=== PATIENT | female | born 1965 | race Caucasian/White ===

== ENCOUNTER 2018-05-08 19:31 | Emergency (ER) | payer SELFPAY ==
[2018-05-08 19:44] VITALS: BP 158/62; PULSE 96; RESP 20; TEMP 36.1; O2SAT 99; BMI 42.5
--- NOTE | 2018-05-08 19:45 | ED.DIZZY ---
HPI - Dizziness <FELECIA Pratt - Last Filed: 05/08/18 22:49> General Chief Complaint: Dizziness Stated Complaint: DIZZY, SWAETING Time Seen by Provider: 05/08/18 19:39 History of Present Illness HPI Narrative: 53-year-old female with history of a prior [place] and cardiac stents here for complaint of having dizziness episodes today started when she woke up this morning at 5 o'clock. She states when she stood up she felt dizziness and lasted for a short while. She did go to work today and states that she had a few episodes today where she moved her head quickly or sat up quickly and she has some dizziness. She reports she had dizziness when she was walking home this afternoon. She denies any chest pain. She did have some nausea. No shortness of breath. She did have some diaphoresis. She denies any head trauma. No fevers no chills positive p.o. intake. No other concerns or complaints. She denies dizziness as more lightheadedness not as much vertigo Related Data Previous Rx's Medication Instructions Recorded meclizine 25 mg PO DAILY PRN #10 tab 05/08/18 Allergies Allergy/AdvReac Type Severity Reaction Status Date / Time No Known Drug Allergies Allergy Verified 05/08/18 20:25 Review of Systems <FELECIA Pratt - Last Filed: 05/08/18 22:49> Constitutional Denies chills, Denies fever(s), Denies lethargy and Denies weakness Eyes Denies change in vision, Denies eye discharge, Denies irritation and Denies loss of vision ENT Ears, Nose, Mouth, and Throat: Reports dizziness Cardiovascular Denies chest pain, Denies irregular heart rhythm, Denies lightheadedness, Denies palpitations, Denies dyspnea, Denies dyspnea on exertion and Denies orthopnea Respiratory Denies cough, Denies dyspnea, Denies dyspnea on exertion and Denies wheezing Genitourinary Denies hematuria, Denies flank pain, Denies urinary incontinence and Denies urinary urgency Musculoskeletal Denies back pain, Denies muscle weakness, Denies numbness and Denies tingling Integumentary/Breasts Denies pruritus, Denies erythema, Denies rash and Denies wounds Neurologic Reports dizziness, Denies loss of vision, Denies numbness, Denies tingling and Denies weakness Endocrine Denies palpitations Allergic/Immunologic Denies wheezing Exam <FELECIA Pratt - Last Filed: 05/08/18 22:49> Initial Vital Signs Initial Vital Signs: Vital Signs Temperature 97 F L 05/08/18 19:44 Pulse Rate 96 H 05/08/18 19:44 Respiratory Rate 20 05/08/18 19:44 Blood Pressure 158/62 H 05/08/18 19:44 Pulse Oximetry 99 05/08/18 19:44 Const General: cooperative and well developed Nutritional Appearance: well nourished Orientation: alert, awake, oriented x3 and not confused HENTN Mouth: oral mucosae normal and moist mucous membranes Eyes Conjunctivae: conjunctivae normal Sclera: sclerae normal Pupils: PERRL EOM: EOM intact bilaterally and No nystagmus Resp Effort & Inspection: normal respiratory effort, able to speak in complete sentences, no respiratory distress and no use of accessory muscles Auscultation: clear to auscultation bilaterally, no rales, no rhonchi and no wheezes Cardio Rate: regular rate Rhythm: regular rhythm Heart Sounds: no click, no gallops, no murmurs and no rubs Pulses: normal peripheral pulses Skin General: no rashes or lesions noted, No jaundice and No petechiae Neuro General: alert, oriented x3, gait normal and no focal motor deficits Cranial Nerves: No nystagmus Speech: speech normal <Pierre Laurent DO - Last Filed: 05/09/18 03:10> Initial Vital Signs Initial Vital Signs: Vital Signs Temperature 97 F L 05/08/18 19:44 Pulse Rate 96 H 05/08/18 19:44 Respiratory Rate 20 05/08/18 19:44 Blood Pressure 158/62 H 05/08/18 19:44 Pulse Oximetry 99 05/08/18 19:44 Scores <FELECIA Pratt - Last Filed: 05/08/18 22:49> HEART Score Heart Score history: Moderately Suspicious Heart Score EKG: Non-Specific repolarization disturbance Heart Score Age: 45-64 years old Heart Score risk factors: 1-2 risk factors NIH Stroke Scale Level of Conciousness: Alert, keenly responsive Ask month/age: Answers both questions correctly. Open/close eyes, close hand: Performs both tasks correctly Best gaze horizontal: Normal Visual mendez: No visual loss Facial palsy: Normal symetrical movement Left arm drift: No drift for full 10 sec Right arm drift: No drift for full 10 sec Left leg drift: No drift for full 10 sec Right leg drift: No drift for full 10 sec Limb ataxia: Absent Sensory on face/arms/legs: Normal, no sensory loss Best language: No aphasia, normal Dysarthria: Normal Extinction or inattention: No abnormality Total NIH Stroke scale score: 0 Course <FELECIA Pratt - Last Filed: 05/08/18 22:49> Orders Ordered: ED Orders 05/08/18 19:50 B Type Natriuretic Peptide Stat Basic Metabolic Panel Stat Complete Blood Count AUTO DIFF Stat Prothrombin Time INR Stat Troponin & CK Cardiac Panel Stat Troponin I Stat 05/08/18 20:02 CT head/brain wo con Stat XR chest 1V Stat Discontinued Medications Aspirin (Aspirin Chew) 243 mg PO DAILY SAPPHIRE Aspirin (Aspirin Chew) 243 mg PO NOW ONE Stop: 05/08/18 20:44 Last Admin: 05/08/18 21:04 Dose: 243 mg Vital Signs - 8 hr 05/08/18 19:44 05/08/18 20:00 05/08/18 21:06 Temperature 97 F L Pulse Rate 96 H 80 76 Pulse Rate [Orthostatic Lying] Pulse Rate [Orthostatic Sitting] Pulse Rate [Orthostatic Standing] Respiratory Rate 20 17 19 Blood Pressure 158/62 H Blood Pressure [Orthostatic Lying] Blood Pressure [Orthostatic Sitting] Blood Pressure [Orthostatic Standing] Blood Pressure [Right Wrist] 136/71 H 118/65 Pulse Oximetry 99 97 97 05/08/18 21:56 05/08/18 22:36 05/08/18 23:30 Temperature Pulse Rate 75 68 Pulse Rate [Orthostatic Lying] 77 Pulse Rate [Orthostatic Sitting] 81 Pulse Rate [Orthostatic Standing] 89 Respiratory Rate 19 18 Blood Pressure 112/64 Blood Pressure [Orthostatic Lying] 112/62 Blood Pressure [Orthostatic Sitting] 124/84 H Blood Pressure [Orthostatic Standing] 139/85 H Blood Pressure [Right Wrist] 108/62 Pulse Oximetry 95 99 <Pierre Laurent DO - Last Filed: 05/09/18 03:10> Orders Ordered: ED Orders 05/08/18 19:50 B Type Natriuretic Peptide Stat Basic Metabolic Panel Stat Complete Blood Count AUTO DIFF Stat Prothrombin Time INR Stat Troponin & CK Cardiac Panel Stat Troponin I Stat 05/08/18 20:02 CT head/brain wo con Stat XR chest 1V Stat Discontinued Medications Aspirin (Aspirin Chew) 243 mg PO DAILY SAPPHIRE Aspirin (Aspirin Chew) 243 mg PO NOW ONE Stop: 05/08/18 20:44 Last Admin: 05/08/18 21:04 Dose: 243 mg Vital Signs - 8 hr 05/08/18 19:44 05/08/18 20:00 05/08/18 21:06 Temperature 97 F L Pulse Rate 96 H 80 76 Pulse Rate [Orthostatic Lying] Pulse Rate [Orthostatic Sitting] Pulse Rate [Orthostatic Standing] Respiratory Rate 20 17 19 Blood Pressure 158/62 H Blood Pressure [Orthostatic Lying] Blood Pressure [Orthostatic Sitting] Blood Pressure [Orthostatic Standing] Blood Pressure [Right Wrist] 136/71 H 118/65 Pulse Oximetry 99 97 97 05/08/18 21:56 05/08/18 22:36 05/08/18 23:30 Temperature Pulse Rate 75 68 Pulse Rate [Orthostatic Lying] 77 Pulse Rate [Orthostatic Sitting] 81 Pulse Rate [Orthostatic Standing] 89 Respiratory Rate 19 18 Blood Pressure 112/64 Blood Pressure [Orthostatic Lying] 112/62 Blood Pressure [Orthostatic Sitting] 124/84 H Blood Pressure [Orthostatic Standing] 139/85 H Blood Pressure [Right Wrist] 108/62 Pulse Oximetry 95 99 MDM - Dizziness <FELECIA Pratt - Last Filed: 05/08/18 22:49> Differential Diagnosis Likely benign paroxysmal positional vertigo and orthostatic hypotension Lab Data Result diagrams: 05/08/18 19:50 05/08/18 19:50 Lab Results 05/08/18 05/08/18 05/08/18 Range/Units 19:50 19:50 19:50 WBC 6.4 (4.5-11.0) X10^3/uL RBC 4.21 (4.0-5.2) X10^6/uL Hgb 13.5 (12.0-16.0) g/dL Hct 39.3 (36-46) % MCV 93.3 (80-100) fL MCH 32.2 (26-34) PG MCHC 34.5 (30-36) % RDW 13.6 (11.6-14.8) % Plt Count 225 (150-400) X10^3/uL Neut % (Auto) 74.9 (50-75) % Lymph % (Auto) 18.2 L (25-40) % [place] % (Auto) 4.1 (3-14) % Eos % (Auto) 2.3 (2-4) % Baso % (Auto) 0.5 (0-2) % Neut # (Auto) 4800 (7937-0115) /uL PT (10.1-12.7) SECONDS INR (0.9-1.3) Sodium 142 (137-145) mmol/L Potassium 3.3 L (3.4-5.1) mmol/L Chloride 99 (98-107) mmol/L Carbon Dioxide 32 (22-32) mmol/L BUN 19 H (7-17) mg/dL Creatinine 0.80 (0.52-1.04) mg/dL Estimated GFR > 60.0 (>60) mL/min BUN/Creatinine Ratio 23.8 H (6-22) Glucose 164 H (70-100) mg/dL Calcium 9.8 (8.4-10.2) mg/dL Total Creatine Kinase 129 (30-135) U/L CK-MB (CK-2) 1.30 (<2.37) ng/mL CK-MB (CK-2) Rel Index 1.0 L (1.5-5.0) % Troponin I < 0.012 < 0.012 (0.01-0.034) ng/mL B-Natriuretic Peptide (<100) 05/08/18 05/08/18 Range/Units 19:50 19:50 WBC (4.5-11.0) X10^3/uL RBC (4.0-5.2) X10^6/uL Hgb (12.0-16.0) g/dL Hct (36-46) % MCV (80-100) fL MCH (26-34) PG MCHC (30-36) % RDW (11.6-14.8) % Plt Count (150-400) X10^3/uL Neut % (Auto) (50-75) % Lymph % (Auto) (25-40) % [place] % (Auto) (3-14) % Eos % (Auto) (2-4) % Baso % (Auto) (0-2) % Neut # (Auto) (7409-2484) /uL PT 12.6 (10.1-12.7) SECONDS INR 1.2 (0.9-1.3) Sodium (137-145) mmol/L Potassium (3.4-5.1) mmol/L Chloride (98-107) mmol/L Carbon Dioxide (22-32) mmol/L BUN (7-17) mg/dL Creatinine (0.52-1.04) mg/dL Estimated GFR (>60) mL/min BUN/Creatinine Ratio (6-22) Glucose (70-100) mg/dL Calcium (8.4-10.2) mg/dL Total Creatine Kinase (30-135) U/L CK-MB (CK-2) (<2.37) ng/mL CK-MB (CK-2) Rel Index (1.5-5.0) % Troponin I (0.01-0.034) ng/mL B-Natriuretic Peptide < 100.0 (<100) Imaging Data Chest x-ray: Radiologist's impression: : 1965 Acct:[id number] Age/Sex: 53 / F Date of Service: 05/08/18 Loc: ED Accession Number: [id number] Procedure: XR chest 1V Ordering Provider: Oli Mcwilliams PROCEDURE: XR CHEST 1V INDICATIONS: 53 year-old woman with dizziness TECHNIQUE: One view of the chest was acquired. COMPARISON: None. FINDINGS: Surgical changes and devices: None. Lungs and pleura: No pleural effusions or pneumothorax. Lungs are clear. Mediastinum: Mediastinal contours appear normal. Heart size is normal. Bones and chest wall: No suspicious bony lesions. Overlying soft tissues appear unremarkable. IMPRESSION: No acute cardiopulmonary disease. Dictated by: Say Schultz M.D. on 05/08/2018 at 21:10 Approved by: Say Schultz M.D. on 05/08/2018 at 21:11 CT scan - head: Radiologist's impression: PROCEDURE: CT HEAD/BRAIN WO CON INDICATIONS: dizziness TECHNIQUE: Noncontrast 4.5 mm thick angled axial sections acquired from the foramen magnum to the vertex, with coronal and sagittal reformats. For radiation dose reduction, the following was used: automated exposure control, adjustment of mA and/or kV according to patient size. COMPARISON: None. FINDINGS: Image quality: Excellent. CSF spaces: Basal cisterns are patent. No extra-axial fluid collections. Ventricles are normal in size and shape. Brain: No midline shift. No intracranial masses or hemorrhage. Leal-white matter interface is normal. Skull and face: Calvarium and visualized facial bones are intact, without suspicious lesions. Sinuses: Visualized sinuses and mastoids are clear. There is an implant in the left inner air. IMPRESSION: 1. No acute intracranial abnormalities. Dictated by: Say Schultz M.D. on 05/08/2018 at 21:11 Approved by: Say Schultz M.D. on 05/08/2018 at 21:13 ECG Data Interpretation: EKG shows normal sinus rhythm with no ST elevation or depression. No ectopy. Ventricular rate is 70. Pr interval of 191. QRS duration 90. QT of 388 MDM Narrative Medical decision making narrative: EKG shows sinus rhythm with no ST elevation or depression. No ectopy. Chest x-ray was obtained was negative for any acute pulmonary or cardia findings. CT of the head was obtained was negative for any acute findings as well. CBC Chem panel were obtained were unremarkable. Cardiac enzymes were negative. Coags were normal. The BMP was negative. NIH stroke scale was 0 patient did have positive orthostatic vital signs indicating she may be not drinking enough fluids. She was able to ambulate around the emergency room without any difficulty no dizziness. Doubtful that her symptoms are acute cardiac symptoms due to no chest pain and negative cardiac enzymes. Patient with no shortness of breath no symptoms of having DVT doubtful is PE. She is encouraged to drink plenty of fluids. Meclizine as prescribed help with any dizziness. She is encouraged to follow up with primary care in the next couple of days for re-evaluation. <Pierre Laurent, - Last Filed: 05/09/18 03:10> Lab Data Lab Results 05/08/18 05/08/18 05/08/18 Range/Units 19:50 19:50 19:50 WBC 6.4 (4.5-11.0) X10^3/uL RBC 4.21 (4.0-5.2) X10^6/uL Hgb 13.5 (12.0-16.0) g/dL Hct 39.3 (36-46) % MCV 93.3 (80-100) fL MCH 32.2 (26-34) PG MCHC 34.5 (30-36) % RDW 13.6 (11.6-14.8) % Plt Count 225 (150-400) X10^3/uL Neut % (Auto) 74.9 (50-75) % Lymph % (Auto) 18.2 L (25-40) % [place] % (Auto) 4.1 (3-14) % Eos % (Auto) 2.3 (2-4) % Baso % (Auto) 0.5 (0-2) % Neut # (Auto) 4800 (7982-5788) /uL PT (10.1-12.7) SECONDS INR (0.9-1.3) Sodium 142 (137-145) mmol/L Potassium 3.3 L (3.4-5.1) mmol/L Chloride 99 (98-107) mmol/L Carbon Dioxide 32 (22-32) mmol/L BUN 19 H (7-17) mg/dL Creatinine 0.80 (0.52-1.04) mg/dL Estimated GFR > 60.0 (>60) mL/min BUN/Creatinine Ratio 23.8 H (6-22) Glucose 164 H (70-100) mg/dL Calcium 9.8 (8.4-10.2) mg/dL Total Creatine Kinase 129 (30-135) U/L CK-MB (CK-2) 1.30 (<2.37) ng/mL CK-MB (CK-2) Rel Index 1.0 L (1.5-5.0) % Troponin I < 0.012 < 0.012 (0.01-0.034) ng/mL B-Natriuretic Peptide (<100) 05/08/18 05/08/18 Range/Units 19:50 19:50 WBC (4.5-11.0) X10^3/uL RBC (4.0-5.2) X10^6/uL Hgb (12.0-16.0) g/dL Hct (36-46) % MCV (80-100) fL MCH (26-34) PG MCHC (30-36) % RDW (11.6-14.8) % Plt Count (150-400) X10^3/uL Neut % (Auto) (50-75) % Lymph % (Auto) (25-40) % [place] % (Auto) (3-14) % Eos % (Auto) (2-4) % Baso % (Auto) (0-2) % Neut # (Auto) (7751-4276) /uL PT 12.6 (10.1-12.7) SECONDS INR 1.2 (0.9-1.3) Sodium (137-145) mmol/L Potassium (3.4-5.1) mmol/L Chloride (98-107) mmol/L Carbon Dioxide (22-32) mmol/L BUN (7-17) mg/dL Creatinine (0.52-1.04) mg/dL Estimated GFR (>60) mL/min BUN/Creatinine Ratio (6-22) Glucose (70-100) mg/dL Calcium (8.4-10.2) mg/dL Total Creatine Kinase (30-135) U/L CK-MB (CK-2) (<2.37) ng/mL CK-MB (CK-2) Rel Index (1.5-5.0) % Troponin I (0.01-0.034) ng/mL B-Natriuretic Peptide < 100.0 (<100) Discharge Plan Departure Patient Disposition: Home, Self-Care Clinical Impression: Dizziness Discharge Date/Time: 05/08/18 23:31 Interventions: ED Discharge Assessment Last Done: 05/08/18 23:30 Instructions: DI for Dizziness-Nonvertigo Activity Restrictions/Additional Instructions: Laboratory results and imaging today were unremarkable. Signs and symptoms may be due to not drinking enough fluids injury or drinking enough fluids. You have been prescribed meclizine to help with any dizziness symptoms he may have use as directed. Follow up with primary care in the next couple of days for re-evaluation. For any worsening symptoms such as chest pain shortness of breath return to the emergency room. Prescriptions: New meclizine 25 mg tablet 25 mg PO DAILY PRN (Reason: dizziness) Qty: 10 RF: 0 Referrals: Dwaine Tucker MD [Physician] - Divya Judd DO [Physician] - Felipa Amaya MD [Physician] - <Pierre Laurent DO - Last Filed: 05/09/18 03:10> Cosign ED Attending Cosignature Attestation: I was immediately available in the department for consultation. Documentation has been reviewed. I agree with assessment and plan.
[2018-05-08 20:00] VITALS: BP 136/71; PULSE 80; RESP 17; O2SAT 97
--- NOTE | 2018-05-08 20:02 | DI.CT.S_ITS ---
PROCEDURE: CT HEAD/BRAIN WO CON INDICATIONS: dizziness TECHNIQUE: Noncontrast 4.5 mm thick angled axial sections acquired from the foramen magnum to the vertex, with coronal and sagittal reformats. For radiation dose reduction, the following was used: automated exposure control, adjustment of mA and/or kV according to patient size. COMPARISON: None. FINDINGS: Image quality: Excellent. CSF spaces: Basal cisterns are patent. No extra-axial fluid collections. Ventricles are normal in size and shape. Brain: No midline shift. No intracranial masses or hemorrhage. Leal-white matter interface is normal. Skull and face: Calvarium and visualized facial bones are intact, without suspicious lesions. Sinuses: Visualized sinuses and mastoids are clear. There is an implant in the left inner air. IMPRESSION: 1. No acute intracranial abnormalities. Dictated by: Say Schultz M.D. on 05/08/2018 at 21:11 Approved by: Say Schultz M.D. on 05/08/2018 at 21:13
--- NOTE | 2018-05-08 20:02 | DI.RAD.S_ITS ---
PROCEDURE: XR CHEST 1V INDICATIONS: 53 year-old woman with dizziness TECHNIQUE: One view of the chest was acquired. COMPARISON: None. FINDINGS: Surgical changes and devices: None. Lungs and pleura: No pleural effusions or pneumothorax. Lungs are clear. Mediastinum: Mediastinal contours appear normal. Heart size is normal. Bones and chest wall: No suspicious bony lesions. Overlying soft tissues appear unremarkable. IMPRESSION: No acute cardiopulmonary disease. Dictated by: Say Schultz M.D. on 05/08/2018 at 21:10 Approved by: Say Schultz M.D. on 05/08/2018 at 21:11
[2018-05-08 20:20] LABS: Add Manual Diff / Slide Review NO; Basophils Percent Auto 0.5 % (0-2); Eosinophils Percent Auto 2.3 % (2-4); Hematocrit 39.3 % (36-46); Hemoglobin 13.5 g/dL (12.0-16.0); Lymphocytes Percent Auto 18.2 % (25-40); Mean Corpuscular HGB Conc 34.5 % (30-36); Mean Corpuscular Hemoglobin 32.2 PG (26-34); Mean Corpuscular Volume 93.3 fL (80-100); Monocytes Percent Auto 4.1 % (3-14); Neutrophils Absolute Auto 4800 /uL (3000-5900); Neutrophils Percent Auto 74.9 % (50-75); Platelet Count 225 X10^3/uL (150-400); Red Blood Cell Count 4.21 X10^6/uL (4.0-5.2); Red Cell Distribution Width 13.6 % (11.6-14.8); White Blood Cell Count 6.4 X10^3/uL (4.5-11.0)
[2018-05-08 20:25] LABS: INR 1.2 (0.9-1.3); Prothrombin Time 12.6 SECONDS (10.1-12.7)
[2018-05-08 20:28] LABS: Creatine Kinase 129 U/L (30-135)
[2018-05-08 20:29] LABS: BUN Creatinine Ratio 23.8 (6-22); Blood Urea Nitrogen 19 mg/dL (7-17); Calcium 9.8 mg/dL (8.4-10.2); Carbon Dioxide 32 mmol/L (22-32); Chloride 99 mmol/L (98-107); Estimated Glomerular Filt Rate > 60.0 mL/min (>60); Glucose 164 mg/dL (70-100); HEMOLYSIS < 15 (0-50); Potassium 3.3 mmol/L (3.4-5.1); Sodium 142 mmol/L (137-145)
[2018-05-08 20:41] LABS: Troponin I < 0.012 ng/mL (0.01-0.034)
[2018-05-08 20:42] LABS: Troponin I < 0.012 ng/mL (0.01-0.034)
[2018-05-08 20:50] LABS: B Type Natriuretic Peptide < 100.0 (<100)
[2018-05-08] MEDS: ASPIRIN 81 MG TAB 243 MG PO (21:04)
[2018-05-08 21:06] VITALS: BP 118/65; PULSE 76; RESP 19; O2SAT 97
[2018-05-08 21:56] VITALS: BP 112/62; BP 124/84; BP 139/85; PULSE 77; PULSE 81; PULSE 89
[2018-05-08 22:36] VITALS: BP 108/62; PULSE 75; RESP 19; O2SAT 95
[2018-05-08 23:30] VITALS: BP 112/64; PULSE 68; RESP 18; O2SAT 99
== END 2018-05-08 23:31 | disposition home or self-care (01) ==
PROVIDERS: Emergency Provider Nurse Practitioner Family
DX: R42 Dizziness and giddiness (principal)
CPT/HCPCS: 36591; 70450; 71045; 80048; 82550; 82553; 83880; 84484; 85025; 85610; 93005; 99283; 99285

== ENCOUNTER → 2018-07-03 14:00 | Outpatient (CLI) | payer OTHER, SELFPAY | PROVIDERS: PCP Student in an Organized Health Care Education/Training Program | DX: Z23 Encounter for immunization (principal) | CPT/HCPCS: 90471; 90686 ==